=== PATIENT | female | born 1955 | race African-American/Black ===

== ENCOUNTER 2017-04-08 16:11 | Emergency (ER) | payer MEDICARE, MEDICAID ==
[~2017-04-08] VITALS: Ht 157.5 cm; Wt 77.2 kg
[2017-04-08] MEDS ORDERED: HYDR25TA6 PO (16:47)
[2017-04-08] MEDS ORDERED: LISI-170 PO (16:47)
[2017-04-08] MEDS ORDERED: POTA8TAB6 PO (16:47)
[2017-04-08] MEDS ORDERED: CEFOTETAN PMX 1GM/50ML 50 ML ONE (16:49)
[2017-04-08 16:51] LABS: BLOOD UREA NITROGEN 9 mg/dL (7-18)
[2017-04-08 17:45] VITALS: BP 135/81
== END 2017-04-08 19:02 | disposition home or self-care (01) ==
LOC: ED 18:30
DX: T46.4X5A Adverse effect of angiotensin-converting-enzyme inhibitors, initial encounter (principal); Y92.9 Unspecified place or not applicable; R05 Cough; I10 Essential (primary) hypertension; Z77.22 Contact with and (suspected) exposure to environmental tobacco smoke (acute) (chronic)
CPT/HCPCS: 36415; 71010; 80048; 82040; 85025; 93005; 99285